=== PATIENT | female | born 1995 | race Caucasian/White ===

== ENCOUNTER 2025-02-18 18:08 | Emergency (ER) | payer SELFPAY ==
[2025-02-18 18:16] VITALS: BP 111/77; PULSE 75; RESP 18; TEMP 36.6; O2SAT 97; BMI 27.8
[2025-02-18] MEDS: lidocaine 1% INJ 20 mL SUBCUT (19:31)
--- NOTE | 2025-02-18 19:42 | W.ED.SKABFB ---
HPI - Skin/Abscess/Foreign Bdy General: Chief complaint: Skin/Abscess/Foreign Body Stated complaint: catfish fin stuck in right hand Time Seen by Provider: 02/18/25 19:23 History of Present Illness: This is a healthy 29-year-old girl who presents to the emergency room with a catfish cuauhtemoc stuck in her right hand. This in the crease between her thumb and index finger. Bleeding is controlled. Tetanus was within the last year. Neurovascularly intact. Related Data Previous Rx's ?Medication ?Instructions ?Recorded cephalexin 500 mg tablet 500 mg PO TID 7 days #21 tabs 02/18/25 ciprofloxacin HCl 500 mg tablet 500 mg PO BID 7 days #14 tabs 02/18/25 Allergies Allergy/AdvReac Type Severity Reaction Status Date / Time Penicillins Allergy ALGY-Hives Verified 02/18/25 18:20 Review of Systems Narrative: Constitutional symptoms: Negative except as documented in HPI. Skin symptoms: Negative except as documented in HPI. Eye symptoms: Negative except as documented in HPI. ENMT symptoms: Negative except as documented in HPI. Respiratory symptoms: Negative except as documented in HPI. Cardiovascular symptoms: Negative except as documented in HPI. Gastrointestinal symptoms: Negative except as documented in HPI. Genitourinary symptoms: Negative except as documented in HPI. Musculoskeletal symptoms: Negative except as documented in HPI. Neurologic symptoms: Negative except as documented in HPI. Psychiatric symptoms: Negative except as documented in HPI. Endocrine symptoms: Negative except as documented in HPI. Physical Exam Narrative: EXAM NARRATIVE: General: Alert, no acute distress. Skin: warm and dry. Foreign body/catfish cuauhtemoc protruding from the dorsum of the hand in the crease between the thumb and the index finger. Neurovascularly intact. Head: Normocephalic Neck: Trachea midline Eye: Extraocular movements are intact. Ears, nose, mouth and throat: Oral mucosa moist Respiratory: Respirations are non-labored Musculoskeletal: Normal ROM Gastrointestinal: Abdomen does not appear distended Neurological: Alert and oriented, No focal neurological deficit observed. Psychiatric: Cooperative, appropriate mood & affect. Course Vital Signs: Vital signs: Vital Signs Temperature 98 F 02/18/25 18:16 Pulse Rate 75 02/18/25 18:16 Respiratory Rate 18 02/18/25 18:16 Blood Pressure 111/77 02/18/25 18:16 Pulse Oximetry 97 02/18/25 18:16 Oxygen Delivery Me thod Room Air 02/18/25 18:16 MDM - Skin/Abscess/Foreign Bdy Medicial Decision Making Foreign body removal Time: 1939. Confirmed correct: Patient, procedure, sight. Consent: Patient Indication: foreign body/catfish cuauhtemoc Location: Right hand Pre procedure exam: Sensory intact, Procedural sedation: (repeat): Lidocaine without epinephrine locally Monitoring: none Technique: Pliers used to remove foreign body. Post-procedure exam: _ foreign body removed. Patient tolerated: Well Complications: None Performed by (rpt): Self Assessment and plan: Catfish cuauhtemoc in hand. ?First dose Cipro and Keflex in the emergency room. Cipro to cover water pathogens. - Discharged home - Discussed findings and plan with patient. Answered any questions. - Evaluation and treatment of this problem were appropriate in the emergency setting No radiology studies performed this visit Discharge Plan Discharge Patient Disposition: Home Clinical Impression: Foreign body hand Condition: Stable Prescriptions: New ciprofloxacin HCl 500 mg tablet 500 mg PO BID 7 Days Qty: 14 0RF cephalexin 500 mg tablet 500 mg PO TID 7 Days Qty: 21 0RF Discharge Orders: Discharge ED (Routine); Ordered 02/18/25 Ordered By: Mirta Kimball Discharge Diet: Usual diet Discharge Activity: Increase activity as tolerated Patient Instructions: Soft Tissue Foreign Body (ED), Puncture Wound (ED), Opioid Safety, Pain Management Activity Restrictions/Additional Instructions: Thank you for choosing [facility] for your healthcare needs today. You have been screened and evaluated and felt safe for discharge. Health conditions do change or evolve sometimes and as such it is important that you follow up with your Primary Doctor to be re checked, 3-5 days is a general good time frame for follow up. You are always welcome to return to the ED for re assessment if your symptoms are worsening or you have new concerns Print Language: Mozambican Coding Level of Care Code ED Real Estate Broker for Zhen Gan
[2025-02-18 20:21] VITALS: BP 117/76; PULSE 68; O2SAT 100
[2025-02-18] MEDS: ciprofloxacin 500 mg Tablet PO (20:47)
[2025-02-18] MEDS: cephALEXin 500 mg Capsule PO (20:47)
[2025-02-18] MEDS: HYDROcodone-acetaminophen 5-325 mg Tablet 2 TAB PO (20:48)
[2025-02-18 20:50] VITALS: BP 117/76; PULSE 73; O2SAT 100
== END 2025-02-18 20:52 | disposition home or self-care (01) ==
PROVIDERS: Emergency Provider Emergency Medicine
DX: S61.441A Puncture wound with foreign body of right hand, initial encounter (principal); W45.8XXA Other foreign body or object entering through skin, initial encounter
CPT/HCPCS: 99283; J9999

== ENCOUNTER 2025-02-24 13:32 | Emergency (ER) | payer SELFPAY ==
--- OUTSIDE RECORDS SUMMARY | 2024-10-24 04:00 | XMS_ITS ---
Author Organization [facility] Address [address] [facility] [address] [facility] [address] [place] [address] Care Team Providers Care Community Youth Secretary Name Role Phone Luz Lynn Primary Care Provider REASON FOR VISIT Palpitations Social History Sex Assigned At : Social History Observation Description Sex Assigned At Female Encounters Encounter Location Date Provider Diagnosis [facility] [address] [facility] [address] [place] [address] 10/24/2024 Luz Lynn Plan Of Treatment No Information Progress Notes * Jessica SCHUMACHERRachelleB: 6 (29 yo F)Acc No.[id number]:10/24/2024 Progress Notes Patient: Amina MALHOTRA Provider: YOSSI Kingston, DK, JONATHON-C :1995 A ge:28 Y S ex:Female Date:10/24/2024 Address:[address] [place], [place] [id number] Subjective: * Chief Complaints: * 1 . Palpitations. * Medical History: Objective: * Vitals: Assessment: Plan: * Treatment: * Billing Information: * Visit Code: * Procedure Codes: * Electronic signature of JONATHON Lanier on 02/24/2025 at 02:02 PM CDT Sign off status: Pending * Provider: YOSSI Kingston, DK, RN IV THERAPY-C Date: 10/24/2024 Generated for Printi ng/Faxing/eTransmitting on: 02/24/2025 02:02 PM CDT
--- OUTSIDE RECORDS SUMMARY | 2024-11-10 10:00 | XMS_ITS ---
[facility] Address [address] [address] Care Team Providers Care Inside Wirer Name Role Phone Luz Lynn Primary Care Provider REASON FOR VISIT Sick Medications Medication SIG (Take, Route, Fr equency, Duration) Notes Start Date End Date Status Fluconazole 150 MG 1 tablet Orally 1 no w may repeat in 3 days for 7 day(s) 03/10/2024 11/17/2024 Ac tive Azithromycin 250 MG 2 tablet on the s t day, then 1 tablet daily for 4 days Orally Once a day for 5 days 11/10/2024 11/15/2024 Act monica Social History Sex Assigned At : Social History Observation Description Sex Assigned At Female Encounters Encounter Location Date Provider Diagnosis [facility] [address] [address] 11/10/2024 Luz Lynn Fever, unspecifie d fever cause R50.9 ; Strep pharyngitis J02.0 ; Acute bilateral otitis media H66.93 ; Influenza-like illness J11.1 ; Acute cough R05.1 ; Wheezing R06.2 ; Exposure to COVID-19 virus Z20.822 ; Body aches R52 and Acute vaginitis N76.0 Assessments Encounter Date Diagnosis (ICD Code) Assessment Notes Treatment Notes Treatment Clinical Notes Section Notes 11/10/2024 Fever, unspecified fever cause (ICD-10 - R50.9) 11/10/2024 Strep pharyngitis (ICD-10 - J02.0) 11/10/2024 Acute bilateral otitis media (ICD-10 - H66.93) 11/10/2024 Influenza-like illness (ICD-10 - J11.1) 11/10/2024 Acute cough (ICD-10 - R05.1) 11/10/2024 Wheezing (ICD-10 - R06.2) 11/10/2024 Exposure to COVID-19 virus (ICD-10 - Z20.822) 11/10/2024 Body aches (ICD-10 - R52) 11/10/2024 Acute vaginitis (ICD-10 - N76.0) Plan Of Treatment Medication Medication Name Sig Start Date Stop Date Notes Fluconazole 150 MG 1 tablet Orally 1 no w may repeat in 3 days for 7 day(s) 03/10/2024 11/17/2024 Azithromycin 250 MG 2 tablet on the s t day, then 1 tablet daily for 4 days Orally Once a day for 5 days 11/10/2024 11/15/2024 Pending Test Test Name Order Date Rapid Flu 11/10/2024 Rapid Strep 11/10/2024 Covid Rapid Test 11/10/2024 Rapid RSV 11/10/2024 Next Appt Details Follow Up: 1 Week, Reason: f /u illness Progress Notes * Jessica SCHUMACHERRachelleB: 6 (29 yo F)Acc No.[id number]:11/10/2024 Progress Notes Patient: Amina MALHOTRA Provider: Jose Lynn, MSN, FUSE COILER, SMALL BUSINESS BANKING OFFICER-C :1995 A ge:28 Y S ex:Female Date:11/10/2024 Address:[address] [place], [place] [id number] Subjective: * Chief Complaints: * 1 . Sick. * Medical History: Objective: * Vitals: Assessment: * Assessment: 1. F ever, unspecified fever cause - R50.9 (Primary) 2 . S trep pharyngitis - J02.0 3 . A cute bilateral otitis media - H66.93 4 . I nfluenza-like illness - J11.1 5 . A cute cough - R05.1 6 . W heezing - R06.2 7 . E xposure to COVID-19 virus - Z20.822 8 .?Body aches - R52 9 . A cute vaginitis - N76.0 Plan: * Treatment: 2. S trep pharyngitis Start Azithromycin Tablet, 250 MG, 2 tablet on the first day, then 1 tablet daily for 4 days, Orally, Once a day, 5 days, 6 Tablet, Refills 0. L AB: Rapid Strep 3. I nfluenza-like illness L AB: Rapid Flu 4. A cute cough L AB: Rapid Flu L AB: Covid Rapid Test L AB: Rapid RSV 5. W heezing L AB: Rapid RSV 6. E xposure to COVID-19 virus L AB: Covid Rapid Test 7. B nathen aches L AB: Rapid Flu L AB: Covid Rapid Test 8. A cute vaginitis Refill Fluconazole Tablet, 150 MG, 1 tablet, Orally, 1 now may repeat in 3 days, 7 day(s), 2 Each, Refills 0. * Procedure Codes: 8 7880 Strep Immunoassa, Modifiers: QW , 98701 Flu A & B, Modifiers: QW , 56402 RAPID RSV, Modifiers: QW , 20592 Covid Rapid Test, Modifiers: QW * Follow Up: 1 Week (Reason: f/u illness) * Billing Information: * Visit Code: 69978 Office Visit, Est Patient Level 4. Modifiers: 25 * Procedure Codes: 40765 Strep Immunoassa. Modifiers: QW 80090 Flu A & B. Modifiers: QW 35495 RAPID RSV. Modifiers: QW 77142 Covid Rapid Test. Modifiers: QW * Electronic signature of JONATHON Lanier on 02/24/2025 at 02:02 PM CDT Sign off status: Pending * Provider: Jose Lynn, MSN, FUSE COILER, SMALL BUSINESS BANKING OFFICER-C Date: 0 11/10/2024 Generated for Anthony sheikh/Bobby/Marcysmitting on: 0 02/24/2025 02:02 PM CDT
--- OUTSIDE RECORDS SUMMARY | 2024-11-17 06:30 | XMS_ITS ---
Author Organization [facility] Address [address] [facility] [address] [facility] [address] [place] [address] Care Team Providers Care Laser Engineer Name Role Phone Luz Lynn Primary Care Provider [phone] REASON FOR VISIT f;u illness Medications Medication SIG (Take, Route, Fr equency, Duration) Notes Start Date End Date Status Fluconazole 150 MG 1 tablet Orally 1 no w may repeat in 3 days for 7 day(s) 03/10/2024 11/17/2024 Ac tive Social History Sex Assigned At : Social History Observation Description Sex Assigned At Female Encounters Encounter Location Date Provider Diagnosis [facility] [address] [facility] [address] [facility] [address] [place] [address] 11/17/2024 Luz Lynn Fever, unspecifie d fever cause R50.9 ; Strep pharyngitis J02.0 ; Acute bilateral otitis media H66.93 ; Influenza-like illness J11.1 ; Acute cough R05.1 ; Wheezing R06.2 ; Exposure to COVID-19 virus Z20.822 ; Body aches R52 and Acute vaginitis N76.0 Assessments Encounter Date Diagnosis (ICD Code) Assessment Notes Treatment Notes Treatment Clinical Notes Section Notes 11/17/2024 Fever, unspecified fever cause (ICD-10 - R50.9) 11/17/2024 Strep pharyngitis (ICD-10 - J02.0) 11/17/2024 Acute bilateral otitis media (ICD-10 - H66.93) 11/17/2024 Influenza-like illness (ICD-10 - J11.1) 11/17/2024 Acute cough (ICD-10 - R05.1) 11/17/2024 Wheezing (ICD-10 - R06.2) 11/17/2024 Exposure to COVID-19 virus (ICD-10 - Z20.822) 11/17/2024 Body aches (ICD-10 - R52) 11/17/2024 Acute vaginitis (ICD-10 - N76.0) Plan Of Treatment No Information Progress Notes * Michelle SCHUMACHERB: 6 (29 yo F)Acc No.[id number]:11/17/2024 Progress Notes Patient: Amina MALHOTRA Provider: Jose Lynn, MSN, ELECTROPLATER APPRENTICE, LABEL REWINDER-C :1995 A ge:28 Y S ex:Female Date:11/17/2024 Address:[address] [place], [place] [id number] Subjective: * Chief Complaints: * 1 . F;u illness. * Medical History: * Medications: T aking Fluconazole 150 MG Tablet 1 tablet Orally 1 now january repeat in 3 days , stop date 11/17/2024 Objective: * Vitals: Assessment: * Assessment: 1. [...] cute vaginitis - N76.0 Plan: * Treatment: * Billing Information: * Visit Code: 05467 Office Visit, Est Patient Level 4. * Procedure Codes: * Electronic signature of JONATHON Lanier on 02/24/2025 at 02:02 PM CDT Sign off status: Pending * Provider: Jose Lynn MSN, ELECTROPLATER APPRENTICE, LABEL REWINDER-C Date: 0 11/17/2024 Generated for Anthony ng/Ranulfog/eTransmitting on: 0 02/24/2025 02:02 PM CDT
--- NOTE | 2025-02-24 13:38 | XR_ITS ---
WS: [id number] Exam: XR hand RT min 3V* 17504 Date/Time of Exam: 02/24/2025 1:40 PM Reason For Exam: hand injury No acute fracture. The joints are preserved. Tiny linear opaque soft tissue density between the first and second metacarpals most likely a foreign body. This could be a glass fragment. XR/XR hand RT min 3V* [id number] IMPRESSION: 1. No fracture. 2. 1 mm x 3 mm opaque soft tissue density between the first and second metacarp als most likely a soft tissue foreign body. Possible glass fragment.
[2025-02-24 13:48] VITALS: BP 103/63; PULSE 71; RESP 18; TEMP 36.7; O2SAT 99
--- OUTSIDE RECORDS SUMMARY | 2025-02-24 14:02 | XMS_ITS | Patient Health Record ---
Author Organization [facility] Address [address] [place] [address] Care Team Providers Care Marble Carver Name Role Phone Luz Lynn Primary Care Provider Allergies Allergen (clinical drug ingredient) Drug/Non Drug Allergy documented on EMR Reaction Allergy Type Onset Date Status Penicillin rash Drug Allergy Active Results Component Value Reference Range Notes Covid Rapid Test Reviewed date:05/19/2024 10:34:31 AM Interpretation:Negative Performing Lab: Notes/Report: Negative Rapid Flu Reviewed date:05/12/2024 10:53:10 AM Interpretation:Negative Performing Lab: Notes/Report: Negative Rapid Strep Reviewed date:05/12/2024 10:53:20 AM Interpretation:Positive Performing Lab: Notes/Report: Positive Covid Rapid Test Reviewed date:05/12/2024 10:53:31 AM Interpretation:Negative Performing Lab: Notes/Report: Negative Rapid RSV Reviewed date:05/12/2024 10:53:40 AM Interpretation:Negative Performing Lab: Notes/Report: Negative Reason For Referral Reason EKG Holter Monitor S tudy Diagnosis 1 Palpitations (R00.2) Diagnosis 2 Tachycardia, unspeci fied (R00.0) Diagnosis 3 Near syncope (R55) Diagnosis 4 Chest pain at rest ( R07.9) Referral Organization [facility] Referring Provider First Name Luz Referring Provider Last Name January Referring Provider Speciality Family Med icine Referred Provider Specialty Sleep Medici ne Referral Priority Routine Social History Tobacco Use: Social History Observation Description Date Details (start date - stop date) Never Smoker NA - NA Sex Assigned At : Social History Observation Description Sex Assigned At Female Tobacco Use/Smoking Question Answer Notes Tobacco use: nonsmoker Additional Findings: Tobacco Non-User Aggressive non-smoker Section Notes: Patient is currently working a job that is very stressful. She repeatedly deals with confrontation and rudeness when she has to leave work for medical appointments for her daughter or herself. Patient with young at home, and she is working full-time Patient with young at home, and she is working full-time Patient with young at home, and she is working full-time Patient with young at home, and she is working full-time Patient with young at home, and she is working full-time Patient with young at home, and she is working full-time Patient with young infant at home, and she is working full-time Patient with young at home, and she is working full-time Problems Problem Type SNOMED Code ICD Code Onset Dates Problem Status W/U Status Risk Notes Problem Panic attack (784403951) Panic attack (F41.0) Active confirmed Problem Grief (672459810) Grief (F43.21) Active confirm ed Problem Mixed hyperlipidemia (378506959) Mixed hyperlipidemia (E78.2) Active confirmed Problem 20354303 Iron deficiency anemia, unspecified iron deficiency anemia type (D50.9) Active confirmed Problem 885747938 Dysmenorrhea (N94.6) Active confirmed Problem 67071161 Vitamin D deficiency (E55.9) Active confirmed Problem 043697478 Insomnia, unspecified type (G47.00) Active confirmed Problem 968459721 Mild intermitten t asthma with acute exacerbation (J45.21) Active confirmed Problem Adenomyosis of the uterus (N80.03) Active confirmed Problem Irritability and anger (949065008) Irritability and anger (R45.4) Active confirmed Problem Snoring (99661169) Snoring (R06.83) Active confirmed Problem 210452472 Allergic conjunctivitis of both eyes (H10.13) Active confirmed Problem 36429084 Allergic rhinitis, unspecified seasonality, unspecified trigger (J30.9) Active confirmed Problem 658365020 Chronic serous otitis media, bilateral (H65.23) Active confirmed Problem 74549695 Hypertrophy of tonsils with hypertrophy of adenoids (J35.3) Active confirmed Problem 24455674 Polyuria (R35.89) Active confirmed Problem 038285646 Polyphagia (R63.2) Active confirmed Problem 255023263 Mixed anxiety an d depressive disorder (F41.8) Active confirmed Problem 20387487 Irritability (R45.4) Active confirmed Problem 657445465 Hair loss (L65.9) Active confirmed Problem 71675480 Fatigue, unspecified type (R53.83) Active confirmed Vital Signs Heart Rate 72 /min 10/21/2024 Temperature 98.2 degrees Fahrenheit 10/21/2024 Respiratory Rate 18 /min 10/21/2024 Oximetry 99 % 10/21/2024 Blood pressure diastolic 78 mm Hg 10/21/2024 Height-cm 162.56 cm 10/21/2024 Weight-kg 67.9 kg 10/21/2024 Height 64 in 10/21/2024 Blood pressure systolic 112 mm Hg 10/21/2024 Weight 149.7 lbs 10/21/2024 BMI 25.69 kg/m2 10/21/2024 Encounters Encounter Location Date Provider Diagnosis [facility] [address] [address] 03/10/2024 Mashanda May [facility] [address] [address] 10/21/2024 Mashanda May Palpitations R00.2 ; Tachycardia, unspecified R00.0 ; Chest pain at rest R07.9 ; Dizziness R42 and Near syncope R55 [facility] [address] [address] 03/10/2024 Mashanda May Acute vaginitis N76. 0 and Dysuria R30.0 [facility] [address] [address] 05/12/2024 Mashanda May Fever, unspecified f ever cause R50.9 ; Strep pharyngitis J02.0 ; Headache, unspecified R51.9 ; Acute bilateral otitis media H66.93 ; Influenza-like illness J11.1 ; Acute non-recurrent maxillary sinusitis J01.00 ; Exposure to COVID-19 virus Z20.822 ; Acute cough R05.1 ; Wheezing R06.2 and Mild intermittent asthma with acute exacerbation J45.21 [facility] [address] [address] 05/19/2024 Mashanda May Fever, unspecified f ever cause R50.9 ; Strep pharyngitis J02.0 ; Influenza-like illness J11.1 ; Wheezing R06.2 ; Acute cough R05.1 ; Mild intermittent asthma with acute exacerbation J45.21 ; Allergic rhinitis, unspecified seasonality, unspecified trigger J30.9 ; Acute nonintractable headache, unspecified headache type R51.9 and Exposure to COVID-19 virus Z20.822 [facility] [address] [address] 09/12/2024 Mashanda May Fever, unspecified f ever cause R50.9 ; Strep pharyngitis J02.0 ; Influenza-like illness J11.1 ; Acute cough R05.1 ; Wheezing R06.2 ; Mild intermittent asthma with acute exacerbation J45.21 ; Exposure to COVID-19 virus Z20.822 and Acute vaginitis N76.0 [facility] [address] [address] 10/08/2024 Mashanda May Fever, unspecified R 50.9 ; Acute left otitis media H66.92 ; Influenza A J10.1 ; Acute sinusitis, unspecified J01.90 ; Acute pharyngitis, unspecified J02.9 ; Acute cough R05.1 ; Wheezing R06.2 ; Body aches R52 and Exposure to COVID-19 virus Z20.822 [facility] [address] [address] 10/24/2024 Mashanda May [facility] [address] [address] 11/10/2024 Mashanda May Fever, unspecified f ever cause R50.9 ; Strep pharyngitis J02.0 ; Acute bilateral otitis media H66.93 ; Influenza-like illness J11.1 ; Acute cough R05.1 ; Wheezing R06.2 ; Exposure to COVID-19 virus Z20.822 ; Body aches R52 and Acute vaginitis N76.0 [facility] [address] [address] 11/17/2024 Mashanda May Fever, unspecified f ever cause R50.9 ; Strep pharyngitis J02.0 ; Acute bilateral otitis media H66.93 ; Influenza-like illness J11.1 ; Acute cough R05.1 ; Wheezing R06.2 ; Exposure to COVID-19 virus Z20.822 ; Body aches R52 and Acute vaginitis N76.0 [facility] [address] [address] 09/19/2024 Mashanda May Fever, unspecified f ever cause R50.9 ; Strep pharyngitis J02.0 ; Influenza-like illness J11.1 ; Acute cough R05.1 ; Wheezing R06.2 ; Mild intermittent asthma with acute exacerbation J45.21 ; Exposure to COVID-19 virus Z20.822 and Acute vaginitis N76.0 [facility] [address] [address] 10/01/2024 Mashanda May Panic attack F41.0 ; Fever, unspecified R50.9 ; Acute left otitis media H66.92 ; Influenza A J10.1 ; Acute sinusitis, unspecified J01.90 ; Acute pharyngitis, unspecified J02.9 ; Acute cough R05.1 ; Wheezing R06.2 ; Body aches R52 ; Exposure to COVID-19 virus Z20.822 ; Grief F43.21 and Insomnia, unspecified type G47.00 Assessments Encounter Date Diagnosis (ICD Code) Assessment Notes Treatment Notes Treatment Clinical Notes Section Notes 03/10/2024 Acute vaginitis (ICD-10 - N76.0) 03/10/2024 Dysuria (ICD-10 - R30.0) 05/12/2024 Fever, unspecified fever cause (ICD-10 - R50.9) 05/12/2024 Strep pharyngitis (ICD-10 - J02.0) 05/19/2024 Fever, unspecified fever cause (ICD-10 - R50.9) 05/19/2024 Strep pharyngitis (ICD-10 - J02.0) 09/12/2024 Fever, unspecified fever cause (ICD-10 - R50.9) 09/12/2024 Strep pharyngitis (ICD-10 - J02.0) 09/19/2024 Fever, unspecified fever cause (ICD-10 - R50.9) 09/19/2024 Strep pharyngitis (ICD-10 - J02.0) 10/01/2024 Panic attack (ICD-10 - F41.0) 10/01/2024 Fever, unspecified (ICD-10 - R50.9) 10/08/2024 Fever, unspecified (ICD-10 - R50.9) 10/08/2024 Acute left otitis media (ICD-10 - H66.92) 10/21/2024 Palpitations (ICD-10 - R00.2) 10/21/2024 Tachycardia, unspecified (ICD-10 - R00.0) 11/10/2024 Fever, unspecified fever cause (ICD-10 - R50.9) 11/10/2024 Strep pharyngitis (ICD-10 - J02.0) 11/17/2024 Fever, unspecified fever cause (ICD-10 - R50.9) 11/17/2024 Strep pharyngitis (ICD-10 - J02.0) 11/17/2024 Acute bilateral otitis media (ICD-10 - H66.93) 11/10/2024 Acute bilateral otitis media (ICD-10 - H66.93) 10/21/2024 Chest pain at rest (ICD-10 - R07.9) 10/08/2024 Influenza A (ICD-10 - J10.1) 10/01/2024 Acute left otitis media (ICD-10 - H66.92) 09/19/2024 Influenza-like illness (ICD-10 - J11.1) 09/12/2024 Influenza-like illness (ICD-10 - J11.1) 05/19/2024 Influenza-like illness (ICD-10 - J11.1) 05/12/2024 Headache, unspecified (ICD-10 - R51.9) 05/12/2024 Acute bilateral otitis media (ICD-10 - H66.93) 05/19/2024 Wheezing (ICD-10 - R06.2) 09/12/2024 Acute cough (ICD-10 - R05.1) 09/19/2024 Acute cough (ICD-10 - R05.1) 10/01/2024 Influenza A (ICD-10 - J10.1) 10/08/2024 Acute sinusitis, unspecified (ICD-10 - J01.90) 10/21/2024 Dizziness (ICD-10 - R42) 11/10/2024 Influenza-like illness (ICD-10 - J11.1) 11/17/2024 Influenza-like illness (ICD-10 - J11.1) 11/17/2024 Acute cough (ICD-10 - R05.1) 11/10/2024 Acute cough (ICD-10 - R05.1) 10/21/2024 Near syncope (ICD-10 - R55) 10/08/2024 Acute pharyngitis, unspecified (ICD-10 - J02.9) 10/01/2024 Acute sinusitis, unspecified (ICD-10 - J01.90) 09/19/2024 Wheezing (ICD-10 - R06.2) 09/12/2024 Wheezing (ICD-10 - R06.2) 05/19/2024 Acute cough (ICD-10 - R05.1) 05/12/2024 Influenza-like illness (ICD-10 - J11.1) 05/12/2024 Acute non-recurrent maxillary sinusitis (ICD-10 - J01.00) 05/19/2024 Mild intermittent asthma with acute exacerbation (ICD-10 - J45.21) 09/12/2024 Mild intermittent asthma with acute exacerbation (ICD-10 - J45.21) 09/19/2024 Mild intermittent asthma with acute exacerbation (ICD-10 - J45.21) 10/01/2024 Acute pharyngitis, unspecified (ICD-10 - J02.9) 10/08/2024 Acute cough (ICD-10 - R05.1) 11/10/2024 Wheezing (ICD-10 - R06.2) 11/17/2024 Wheezing (ICD-10 - R06.2) 11/17/2024 Exposure to COVID-19 virus (ICD-10 - Z20.822) 11/10/2024 Exposure to COVID-19 virus (ICD-10 - Z20.822) 10/08/2024 Wheezing (ICD-10 - R06.2) 10/01/2024 Acute cough (ICD-10 - R05.1) 09/19/2024 Exposure to COVID-19 virus (ICD-10 - Z20.822) 09/12/2024 Exposure to COVID-19 virus (ICD-10 - Z20.822) 05/19/2024 Allergic rhinitis, unspecified seasonality, unspecified trigger (ICD-10 - J30.9) 05/12/2024 Exposure to COVID-19 virus (ICD-10 - Z20.822) 05/12/2024 Acute cough (ICD-10 - R05.1) 05/19/2024 Acute nonintractable headache, unspecified headache type (ICD-10 - R51.9) 09/12/2024 Acute vaginitis (ICD-10 - N76.0) 09/19/2024 Acute vaginitis (ICD-10 - N76.0) 10/01/2024 Wheezing (ICD-10 - R06.2) 10/08/2024 Body aches (ICD-10 - R52) 11/10/2024 Body aches (ICD-10 - R52) 11/17/2024 Body aches (ICD-10 - R52) 11/17/2024 Acute vaginitis (ICD-10 - N76.0) 11/10/2024 Acute vaginitis (ICD-10 - N76.0) 10/08/2024 Exposure to COVID-19 virus (ICD-10 - Z20.822) 10/01/2024 Body aches (ICD-10 - R52) 05/19/2024 Exposure to COVID-19 virus (ICD-10 - Z20.822) 05/12/2024 Wheezing (ICD-10 - R06.2) 05/12/2024 Mild intermittent asthma with acute exacerbation (ICD-10 - J45.21) 10/01/2024 Exposure to COVID-19 virus (ICD-10 - Z20.822) 10/01/2024 Grief (ICD-10 - F43.21) 10/01/2024 Insomnia, unspecified type (ICD-10 - G47.00) Plan Of Treatment Pending Test Test Name Order Date Ultrasound : Abdomen and Pelvis 07/11/20 Thyroid Panel With TSH 02/21/2022 Vitamin B12 and Folate 02/21/2022 Hemoglobin A1c 02/21/2022 Urinalysis, Complete 02/21/2022 CBC With Differential/Platelet Vitamin D, 25-Hydroxy 02/21/2022 Comp. Metabolic Panel (14) 02/21/2022 Rapid Flu 11/10/2024 Rapid Flu 10/01/2024 Rapid Flu 09/12/2024 Rapid Flu 08/08/2022 Rapid Flu 03/07/2023 US ABDOMINAL 07/11/2022 Rapid Strep 08/08/2022 Rapid Strep 07/11/2022 Rapid Strep 03/07/2023 Rapid Strep 09/12/2024 Rapid Strep 10/01/2024 Rapid Strep 11/10/2024 Covid Rapid Test 11/10/2024 Covid Rapid Test 10/01/2024 Covid Rapid Test 09/12/2024 Rapid RSV 09/12/2024 Rapid RSV 10/01/2024 Rapid RSV 11/10/2024 Thyroid Panel With TSH-[id number] 02/08/2024 Vitamin B12 and Folate-081428 02/08/2024 Iron and TIBC-200491 02/08/2024 Hemoglobin Y7w-913960 02/08/2024 Zinc, Plasma or Serum-866100 02/08/2024 Urinalysis, Complete-[id number] 02/08/2024 Urinalysis, Complete-[id number] 07/11/2022 ACTH, Plasma-104858 02/08/2024 CBC With Differential/Platelet-761169 Antistreptolysin O Ab-099628 09/18/2022 Urine Culture,Comprehensive-005515 07/11 PTH, Intact-053312 02/08/2024 Vitamin D, 18-Fmuxuhp-493440 02/08/2024 Anti-DNase B Strep Antibodies-333797 Cortisol - AM-[id number] 02/08/2024 Comp. Metabolic Panel ([id number] 2023 DHEA-Sulfate, Serum-116068 02/08/2024 FSH+TestT+LH+Prog+Estrogen-093012 2023 Lipid Profile-750888 02/08/2024 Insurance Providers Payer Name Payer Address Payer Phone Subscriber Number Group Number Insured Name Patient Relationship to Insured Coverage Start Date Coverage End Date [place] pPO [address] [place] [address] [id number] Amina Schumacher Self - patient is the insured Medications Administered Medication Instructions Date of Administration Dosage Notes Cyanobalamin Vit B 03/01/2022 1 mL Cyanobalamin Vit B 03/10/2022 1 mL Cyanobalamin Vit B 03/31/2022 1 mL Medical (General) History Medical History History ICD Code Mixed anxiety and depressive disorder F4 1.8 Fatigue, unspecified type R53.83 Hair loss L65.9 Polyuria R35.89 Irritability and anger R45.4 Polyphagia R63.2 Adenomyosis of the uterus N80.03 Surgical History Surgery Date(Month/Year) Hospitalization History Reason Date(Month/Year)
--- OUTSIDE RECORDS SUMMARY | 2025-02-24 14:03 | XMS_ITS | Clinical Summary ---
Author Organization [facility] Address [address] [place] [address] Care Team Providers Care Last Scourer Name Role Phone Pito Keith MD Primary Care Provider + [phone] Rakesh Mooney MD Unavailable [phone] Medications No known medications Social History Tobacco Use Types Packs/Day Years Used Date Smoking Tobacco: Never Assessed Comments Unknown Sex and Gender Information Value Date Recorded Sex Assigned at Not on file Legal Sex Female 10:50 AM [employer] Gender Identity Not on file Sexual Orientation Not on file Plan of Treatment Health Maintenance Due Date Last Done Comments SARS-COV-2 (COVID) VACCINE ( season) 2023 Insurance BLUE CROSS/BLUE SHIELD Care Teams Last Scourer Relationship Specialty Start Date End Date Pito Keith MD [address] [place] [address] PCP - General Obstetrics & Gynecology 09/22/21 Rakesh Mooney MD [address] [place] [id number] PCP - OBGYN 09/22/21
--- OUTSIDE RECORDS SUMMARY | 2025-02-24 14:03 | XMS_ITS | Data Portability ---
Author Organization [place] - [facility], [facility] Address [address] [place] [address] Assessment Encounter Date Assessment Date Assessment LastModified by Organization Details LastModified Time 11/03/2013 11/03/2013 Patrica Coma Scale (GCS) Eye: spontaneous - 4 Verbal: oriented - 5 Motor: obeys commands - 6 Total Score: 15 [email or web address] Not available 11/03/2013 16:17:58 05/30/2022 05/30/2022 26-year-old female with recurrent upper respiratory tract infections involving the sinuses, ears, and throat. She does have a strong history of allergies though prior allergy testing was unremarkable. Not available 05/30/2022 16:29:26 Plan of Treatment Reminders Order Date Submit Date Provider Last Modified By Organization Details Last Modified Time Details Appointments None recorded. Lab None recorded. Referral None recorded. Procedures allergy testing, skin prick (PROC) 2021 022 [email or web address] In-Office Order, Internal Use Only DO Not Attach Compendium DO Not Attach Compendium, Do Not Delete/merge, [id number] 15:05:15 Surgeries None recorded. Imaging None recorded. Medication Orders Augmentin 500 mg-125 mg tablet 2013 014 INTERFACE Not available 4 16:13:04 Medrol (Varinder) 4 mg tablets in a dose pack 2013 014 [email or web address] Not available 11:24:26 Patient TargetsNo targets recorded. Patient Instructions Encounter Date Encounter Id Patient Instructions Last Modified By Organization Details Last Modified Time 11/03/2013 [id number] Differential: sinusitis, URI, nasopharyngitis. Take medication as directed. Manuel MILLER [email or web address] Not available 11/03/2013 16:17:58 05/30/2022 [id number] allergies: care instructions Not available 05/30/2022 16:31:11 managing your allergies: care instructions Not available 05/30/2022 16:31:11 06/26/2022 [id number] Informed consent obtained and percutanous skin testing performed. Patient tolerated well. Results reviewed with patient. Given immunotherapy options which include sublingual drops or subcutaneous injections. Explained that sublingual drops are not covered by any insurance and cost would be out of pocket and that the subcutaneous injection coverage depends on patient's insurance. After testing was completed, benadryl cream was applied to back. Patient instructed to no perform any strenuous activity or exercise for 2 hours following test. [email or web address] Not available 06/26/2022 15:05:50 Reason for Referral None Reported. Results Created Date Observation Date Name Description Value Unit Range Abnormal Flag Note LastModifiedBy Organization Detail LastModifiedTime 06/26/20 22 06/26/2022 aller gy testi ng, skin prick (PROC ) Histamine Control 5 mm Not Available In-Off ice Order Internal Use Only DO Not Attach Compendium DO Not Attach Compendium, Do Not Delete/merge, [id number] 06/26/2022 15:04:18 06/26/20 22 06/26/2022 aller gy testi ng, skin prick (PROC ) Epiccocum Nigrum 7 mm Not Available In-Off ice Order Internal Use Only DO Not Attach Compendium DO Not Attach Compendium, Do Not Delete/merge, [id number] 06/26/2022 15:04:18 06/26/20 22 06/26/2022 aller gy testi ng, skin prick (PROC ) Cat Hair 0 mm Not Available In-Office Order Internal Use Only DO Not Attach Compendium DO Not Attach Compendium, Do Not Delete/merge, [id number] 06/26/2022 15:04:18 06/26/20 22 06/26/2022 aller gy testi ng, skin prick (PROC ) Dog Epithelium 0 mm Not Available In-Of fice Order Internal Use Only DO Not Attach Compendium DO Not Attach Compendium, Do Not Delete/merge, 06/26/2022 15:04:18 06/26/20 22 06/26/2022 aller gy testi ng, skin prick (PROC ) Mold Mix A 0 mm Not Available In-Offi ce Order Internal Use Only DO Not Attach Compendium DO Not Attach Compendium, Do Not Delete/merge, 06/26/2022 15:04:18 06/26/20 22 06/26/2022 aller gy testi ng, skin prick (PROC ) Mite Mix 0 mm Not Available In-Office Order Internal Use Only DO Not Attach Compendium DO Not Attach Compendium, Do Not Delete/merge, 06/26/2022 15:04:18 06/26/20 22 06/26/2022 aller gy testi ng, skin prick (PROC ) Bipolaris Sorokiniana 0 mm Not Available In-O ffice Order Internal Use Only DO Not Attach Compendium DO Not Attach Compendium, Do Not Delete/merge, 06/26/2022 15:04:18 06/26/20 22 06/26/2022 aller gy testi ng, skin prick (PROC ) Glycerin Control 0 mm Not Available In-Off ice Order Internal Use Only DO Not Attach Compendium DO Not Attach Compendium, Do Not Delete/merge, 06/26/2022 15:04:18 06/26/20 22 06/26/2022 aller gy testi ng, skin prick (PROC ) Roe Grass 7 mm Not Available In-Off ice Order Internal Use Only DO Not Attach Compendium DO Not Attach Compendium, Do Not Delete/merge, 06/26/2022 15:04:18 06/26/20 22 06/26/2022 aller gy testi ng, skin prick (PROC ) Bermuda Grass 0 mm Not Available In-Off ice Order Internal Use Only DO Not Attach Compendium DO Not Attach Compendium, Do Not Delete/merge, 06/26/2022 15:04:18 06/26/20 22 06/26/2022 aller gy testi ng, skin prick (PROC ) Bahia 0 mm Not Available In-Office Order Internal Use Only DO Not Attach Compendium DO Not Attach Compendium, Do Not Delete/merge, 06/26/2022 15:04:18 06/26/20 22 06/26/2022 aller gy testi ng, skin prick (PROC ) Mixed Cockroach 0 mm Not Available In-Off ice Order Internal Use Only DO Not Attach Compendium DO Not Attach Compendium, Do Not Delete/merge, 06/26/2022 15:04:18 06/26/20 22 06/26/2022 aller gy testi ng, skin prick (PROC ) Asha [place] 0 mm Not Available In-Off ice Order Internal Use Only DO Not Attach Compendium DO Not Attach Compendium, Do Not Delete/merge, 06/26/2022 15:04:18 06/26/20 22 06/26/2022 aller gy testi ng, skin prick (PROC ) Western Juniper 0 mm Not Available In-Off ice Order Internal Use Only DO Not Attach Compendium DO Not Attach Compendium, Do Not Delete/merge, 06/26/2022 15:04:18 06/26/20 22 06/26/2022 aller gy testi ng, skin prick (PROC ) [place] Grass 0 mm Not Available In-Offic e Order Internal Use Only DO Not Attach Compendium DO Not Attach Compendium, Do Not Delete/merge, 06/26/2022 15:04:18 06/26/20 22 06/26/2022 aller gy testi ng, skin prick (PROC ) Yoandy Grass 7 mm Not Available In-Off ice Order Internal Use Only DO Not Attach Compendium DO Not Attach Compendium, Do Not Delete/merge, 06/26/2022 15:04:18 06/26/20 22 06/26/2022 aller gy testi ng, skin prick (PROC ) Pecan Pollen 7 mm Not Available In-Of fice Order Internal Use Only DO Not Attach Compendium DO Not Attach Compendium, Do Not Delete/merge, 06/26/2022 15:04:18 06/26/20 22 06/26/2022 aller gy testi ng, skin prick (PROC ) Mountain Candler 0 mm Not Available In-Off ice Order Internal Use Only DO Not Attach Compendium DO Not Attach Compendium, Do Not Delete/merge, 06/26/2022 15:04:18 06/26/20 22 06/26/2022 aller gy testi ng, skin prick (PROC ) [place] 0 mm Not Available In-Office Order Internal Use Only DO Not Attach Compendium DO Not Attach Compendium, Do Not Delete/merge, [id number] 06/26/2022 15:04:18 06/26/20 22 06/26/2022 aller gy testi ng, skin prick (PROC ) 10 Tree Mix 0 mm Not Available In-Off ice Order Internal Use Only DO Not Attach Compendium DO Not Attach Compendium, Do Not Delete/merge, 06/26/2022 15:04:18 06/26/20 22 06/26/2022 aller gy testi ng, skin prick (PROC ) Rough Pigweed 0 mm Not Available In-Off ice Order Internal Use Only DO Not Attach Compendium DO Not Attach Compendium, Do Not Delete/merge, 06/26/2022 15:04:18 06/26/20 22 06/26/2022 aller gy testi ng, skin prick (PROC ) British Thistle 0 mm Not Available In-Off ice Order Internal Use Only DO Not Attach Compendium DO Not Attach Compendium, Do Not Delete/merge, 06/26/2022 15:04:18 06/26/20 22 06/26/2022 aller gy testi ng, skin prick (PROC ) Mosinee/Dock Mix 0 mm Not Available In-Off ice Order Internal Use Only DO Not Attach Compendium DO Not Attach Compendium, Do Not Delete/merge, [id number] 06/26/2022 15:04:18 06/26/20 22 06/26/2022 aller gy testi ng, skin prick (PROC ) Ida Pollen 7 mm Not Available In-Off ice Order Internal Use Only DO Not Attach Compendium DO Not Attach Compendium, Do Not Delete/merge, 06/26/2022 15:04:18 06/26/20 22 06/26/2022 aller gy testi ng, skin prick (PROC ) Togolese Plantain 7 mm Not Available In-Off ice Order Internal Use Only DO Not Attach Compendium DO Not Attach Compendium, Do Not Delete/merge, 06/26/2022 15:04:18 06/26/20 22 06/26/2022 aller gy testi ng, skin prick (PROC ) Mixed Ragweed 0 mm Not Available In-Off ice Order Internal Use Only DO Not Attach Compendium DO Not Attach Compendium, Do Not Delete/merge, 06/26/2022 15:04:18 06/26/20 22 06/26/2022 aller gy testi ng, skin prick (PROC ) Mugwort 0 mm Not Available In-Office Order Internal Use Only DO Not Attach Compendium DO Not Attach Compendium, Do Not Delete/merge, 06/26/2022 15:04:18 06/26/20 22 06/26/2022 aller gy testi ng, skin prick (PROC ) Melgar's Quarters 0 mm Not Available In-Off ice Order Internal Use Only DO Not Attach Compendium DO Not Attach Compendium, Do Not Delete/merge, 06/26/2022 15:04:18 06/26/20 22 06/26/2022 aller gy testi ng, skin prick (PROC ) Carelessweed 0 mm Not Available In-Of fice Order Internal Use Only DO Not Attach Compendium DO Not Attach Compendium, Do Not Delete/merge, 06/26/2022 15:04:18 06/26/20 22 06/26/2022 aller gy testi ng, skin prick (PROC ) Dog Fennel 0 mm Not Available In-Offi ce Order Internal Use Only DO Not Attach Compendium DO Not Attach Compendium, Do Not Delete/merge, 06/26/2022 15:04:18 06/26/20 22 06/26/2022 aller gy testi ng, skin prick (PROC ) Rough Ortega Elder 0 mm Not Available In-Off ice Order Internal Use Only DO Not Attach Compendium DO Not Attach Compendium, Do Not Delete/merge, 06/26/2022 15:04:18 06/26/20 22 06/26/2022 aller gy testi ng, skin prick (PROC ) [place] 0 mm Not Available In-Offic e Order Internal Use Only DO Not Attach Compendium DO Not Attach Compendium, Do Not Delete/merge, 06/26/2022 15:04:18 06/26/20 22 06/26/2022 aller gy testi ng, skin prick (PROC ) Horse 7 mm Not Available In-Office Order Internal Use Only DO Not Attach Compendium DO Not Attach Compendium, Do Not Delete/merge, 06/26/2022 15:04:18 06/26/20 22 06/26/2022 aller gy testi ng, skin prick (PROC ) Mice 0 mm Not Available In-Office Order Internal Use Only DO Not Attach Compendium DO Not Attach Compendium, Do Not Delete/merge, 06/26/2022 15:04:18 06/26/20 22 06/26/2022 aller gy testi ng, skin prick (PROC ) [place] 0 mm Not Available In-Off ice Order Internal Use Only DO Not Attach Compendium DO Not Attach Compendium, Do Not Delete/merge, 06/26/2022 15:04:18 06/26/20 22 06/26/2022 aller gy testi ng, skin prick (PROC ) [place] 0 mm Not Available In-Office Order Internal Use Only DO Not Attach Compendium DO Not Attach Compendium, Do Not Delete/merge, 06/26/2022 15:04:18 06/26/20 22 06/26/2022 aller gy testi ng, skin prick (PROC ) Gilliam 0 mm Not Available In-Office Order Internal Use Only DO Not Attach Compendium DO Not Attach Compendium, Do Not Delete/merge, 06/26/2022 15:04:18 06/26/20 22 06/26/2022 aller gy testi ng, skin prick (PROC ) Catlle 0 mm Not Available In-Office Order Internal Use Only DO Not Attach Compendium DO Not Attach Compendium, Do Not Delete/merge, 06/26/2022 15:04:18 06/26/20 22 06/26/2022 aller gy testi ng, skin prick (PROC ) Mixed Feathers 0 mm Not Available In-Off ice Order Internal Use Only DO Not Attach Compendium DO Not Attach Compendium, Do Not Delete/merge, 06/26/2022 15:04:18 06/26/20 22 06/26/2022 aller gy testi ng, skin prick (PROC ) Rabbit 0 mm Not Available In-Office Order Internal Use Only DO Not Attach Compendium DO Not Attach Compendium, Do Not Delete/merge, [id number] 06/26/2022 15:04:18 Result Notes None recorded. Problems Name Problem SNOMED Code Status Onset Date Resolution Date Notes Provider Name and Address Organization Details Recorded Time Acute sinusitis [id number] FARHAD Arguelles, [address], [place], [address], [facility] 4 16:17:58 Fever [id number] Radhames Goodwin PA-C [address], [address], [place], [address], [facility] 4 16:17:58 Cough [id number] FARHAD Arguelles [employer], [address], [place], [address], [facility] 4 16:17:58 Problem Notes None recorded. Procedures Surgical History Date Name Laterality Status Provider Name and Address Organization Details Recorded Time procedure on wrist completed [facility] 05/30/2022 11:25:18 Imaging Results None recorded. Procedure Notes None recorded. Medical Equipment None Reported. Allergies Allergen ID Allergen Name Allergen Category Reaction Reaction Severity Criticality Documentation Date Start Date Code Code System Note Provider Name and Address Organization Details Recorded Time 695525 Product containin g penicilli n (product) medicatio n Not available Not available Not available 05/30/2022 78903 8001 SNOMED [facility] 2 11:23:50 394151 amoxicill in medicatio n Not available Not available Not available 05/30/2022 723 RxNorm [facility] 2 11:23:55 Medications Name Sig Start Date Stop Date Status Note LastModified by Organization Details LastModified Time Immunothera py Vial #1 0.25cc of vial #2; glycerin 1.0cc 2021 active Not Available Not Available Not Avai lable Immunothera py Vial #2 Epiccocum nigrum, johsnon grass, yoandy grass, pecan pollen, corn pollen, gambian plantain, horse - all full concentra te, 1cc each; glycerin 3cc 2021 active Not Available Not Available Not Avai lable terconazole 0.4 % vaginal cream INSERT 1 APPLICATO RFUL VAGINALLY ONCE DAILY AT BEDTIME FOR 7 DAYS 05/30 completed Not Available Not Available Not Available venlafaxine ER 37.5 mg capsule,ext ended release 24 hr 05/30 completed Not Available Not Available Not Available venlafaxine ER 75 mg capsule,ext ended release 24 hr active Not Available Not Available Not Available clindamycin HCl 300 mg capsule TAKE 1 CAPSULE BY MOUTH THREE TIMES DAILY 05/30 completed Not Available Not Available Not Available azithromyci n 250 mg tablet active Not Available Not Available Not Available ibuprofen 800 mg tablet active Not Available Not Available Not Available tizanidine 4 mg tablet active Not Available Not Available Not Available fluconazole 150 mg tablet 05/30 completed Not Available Not Available Not Available venlafaxine 25 mg tablet 05/30 completed Not Available Not Available Not Available Medrol (Varinder) 4 mg tablets in a dose pack Use as directed 05/30 completed Not Available Not Available Not Available prednisone 20 mg tablet 05/30 completed Not Available Not Available Not Available cefdinir 300 mg capsule 05/30 completed Not Available Not Available Not Available doxycycline hyclate 100 mg tablet 05/30 completed Not Available Not Available Not Available Augmentin 500 mg-125 mg tablet Take 1 tablet every 12 hours by oral route for 10 days. 11/13 completed Not Available Not Available Not Available nitrofurant oin monohydrate /macrocryst als 100 mg capsule TAKE 1 CAPSULE BY MOUTH TWICE DAILY FOR 7 DAYS 05/30 completed Not Available Not Available Not Available levocetiriz ine 5 mg tablet active Not Available Not Available Not Available Auvi-Q 0.3 mg/0.3 mL injection, auto-inject or Take 1 auto by injection route as directed for 1 day. active Not Available Not Available No t Available Zafemy 150 mcg-35 mcg/24 hr transdermal patch APPLY 1 PATCH TOPICALLY ONCE A WEEK GO PATCH FREE THE 4TH WEEK TO HAVE A PERIOD active Not Available Not Available No t Available Vitals Date Recorded Heart rate Respiratory rate Body temperature Body height Body weight Oxygen saturation Oxygen saturation in Arterial blood by Pulse oximetry Body mass index (BMI) Systolic blood pressure Diastolic blood pressure Provider Name and Address Organization Details Last Updated DateTime 4 66 /min 18 /min 100 [degF] 160.02 cm 12929.6 0648 g 99 % 99 % 18.4 kg/m2 114 mm[Hg] 75 mm[Hg] Urban Solomon [facility] 4 14:31:19 Date Recorded Body height Body weight Body mass index (BMI) Heart rate Oxygen saturation Oxygen saturation in Arterial blood by Pulse oximetry Body temperature Systolic blood pressure Diastolic blood pressure Provider Name and Address Organization Details Last Updated DateTime 2 162.56 cm 10624.2 6 g 25.6 kg/m2 90 /min 98 % 98 % 98 [degF] 115 mm[Hg] 76 mm[Hg] Sun Antoinena [facility] 2 11:23:32 Date Recorded Body height Heart rate Oxygen saturation Oxygen saturation in Arterial blood by Pulse oximetry Body temperature Systolic blood pressure Diastolic blood pressure Provider Name and Address Organization Details Last Updated DateTime 2 162.56 cm 76 /min 98 % 98 % 97.7 [degF] 109 mm[Hg] 71 mm[Hg] Lupe French , RN [address], [facility] [address], [place], [address], [facility] 2 14:28:57 Social History Question Answer Notes LastModified by Organizat ion Details LastModified Time Tobacco Smoking Status Never Smoker Urban Solomon [facility] 11/03/2013 14:31:18 What Type Of Diet Are You Following? REGULAR Information not available 11/03/2013 Education 12 Information no t available 11/03/2013 Live Alone Or With Others? With Others Information not available 11/03/2013 Marital Status Single Informatio n not available 11/03/2013 Sex: Unknown Functional Status Question Answer Note LastModified by Organizat ion Details LastModified Time What is your exercise level? Occasional Information not available 11/03/2013 Mental Status None recorded. Family History Nothing Reported. Medical History Condition Response Emphysema N *Chronic Kidney Disease N Glaucoma N Depression Y * N Anxiety Disorder N Arthritis N Hearing Loss N *Healthcare worker N Cancer N Stroke N *Type 2 Diabetes N Fibromyalgia N Speech Delay N Kidney Disease N Allergies/Hayfever Y Heart Problems N Heart Conditions N *COPD (Chronic Obstructive Pulmonary Dis ease) N Migraines N Thyroid Problems N Developmental Delay N *Age is 65 years and above N Anemia N Immune System Disorder N Heart Attack (VT) N *Cancer N Diabetes N Bleeding Disorder N Acid reflux N Asthma N *Obesity and Severe Obesity N Sleep Disorder N *Sickle Cell Disease N *Heart conditions, such as h eart failure, coronary artery disease or cardiomyopathies, solid organ transplantation N Hypertension N Gynecological HistoryNo gynecological history recorded. Obstetrics History GPAL:G 0 P 0 0 0 0 Past Encounters Encounter ID Performer Location Encounter Start Date Encounter Closed Date Diagnosis/Indication Diagnosis SNOMED-CT Code Diagnosis ICD10 Code Diagnosis Note [id number] Zheng Goodwin PA-C [facility] [address] [facility] [address] [place] [address] 11/03/2013 14:08:25 11/03/2013 17:32:00 Acute sinusitis 54030711 Fever [id number] Cough [id number] Miguel Angel Agee MD ENT [address],[facility] [address] [place] [address] 05/30/2022 10:49:16 05/30/2022 11:50:07 Chronic tonsillitis 08464909 J35.01 Tonsils are small and I do not have a strong history or at least a strong record of recurrent strep infections . If we were ever to consider surgery of her tonsils I would need to have documented strep infections because she certainly has no evidence of hypertroph y. Bilateral recurrent acute serous otitis media of middle ears 2980964847 154261 H65.06 Ears look normal today. Allergies may very well be contributi ng to her recurrent ear issues. See below. Recurrent acute sinusitis 861363194 J01.91 She may need a CAT scan of her sinuses but I like to start with allergy testing first. Symptoms seem to be less concretely sinusitis in origin. However, if the allergy testing is unremarkab le a CAT scan will be necessary. Allergic rhinitis 498139 04 J30.9 History does seem most consistent with allergies. Although prior allergy testing was negative, I would like to repeat her allergy testing with multi prick testing as well as intraderma l delusional testing if needed. She is very interested in taking that route. I think this may be an underlying issue to address a lot of the above problems rather than getting super aggressive with surgery or other imaging studies. We will proceed with allergy skin testing and I will see her subsequent ly. [id number] Davina Tanner, KATIANA-C ENT [address] [place] [address] 06/26/2022 14:14:25 06/26/2022 15:29:38 Allergic rhinitis caused by pollen 16097787 J30.1 Health Concerns Section Related Observation LastModified by Organization Detai ls LastModified Time None Recorded Concern Status LastModified by Organization Details LastModified Time None Recorded Advance Directives Directive None Recorded Payers Insurance Date Sequence Insurance Name Policy Number Policy Hilario Covered Member ID Hilario Member ID Guarantor Name 06/23/2022 1 [facility] [id number] Amina Nydia Schumacher [id number] Dimitri Schumacher 04/24/2022 1 *SELF PAY* Jaime Schumacher Notes Date Note Type Note Provider Name and Address Organization Details Recorded Time 11/03/2013 text/html HPI New pt comes in with sinus pressure, fever, cough and congestion x 2 days Zheng Goodwin PA-C [address], [address], [place], [address], [place] [facility] 11/03/2013 16:18:17 05/30/2022 text/html Sinusitis/Allerg yRep orted bypatient.Onset/David ng:recurring; Occurs During Particular Seasons Of The Year: Initially Started: Progressively Worse Over Last:6 Progressively Worse Over Last Duration:Years Location:sore throat;thick phlegm in throat;ear fullness; Headache:Forehead Facial Pain:Bilaterally Sinus Pain:Cheek Nasal Discharge From:Both Nasal Passage Blockage:Bilaterally Pain Behind The Eyes:Both Quality:Quality Of Pain:Pain, Itching, Throbbing, Burning Severity:current pain /10; variable; Symptoms Usually Last:3 Symptoms Duration:Weeks Occurs:Sporadically Context:worse with seasonal allergen exposure;worse around pollen;worse with environmental exposure;worse with odors Risk Factors:family history of allergies Alleviating factors:What Makes Your Symptoms Better:None Aggravating factors:worse when allergies are active; worse with damp weather; worse with cold weather; worse with dry air Associated Symptoms:no fever; no weight loss; no hemoptysis; no hematemesis; no difficulty breathing; no feeling of strangulation; no nausea or vomiting;nasal dischargeNotes:Refer ring Doctor:Luz lobo; Referral Source:Word of Mouth; Checkbox:Person agrees that this Agreement may be electronically signed via checkbox, and that any electronic signatures appearing on this Agreement or such other documents are the same as handwritten signatures for the purposes of validity, enforceability, and admissibility.; Mobileformsource:0 26 yof presents today for evaluation of ear and throat infections. She has bad allergies, frequent sinus infections, occ ear and strep infection. This has been a problem as a youth and as an adult. Her mom tried to get her tonsils out as a youth but apparently they didn't want to take them out at the time. Her last strep is unclear. She had allergy testing at [facility] but it was negative at the time but she is quite convinced that she has allergies. They ordered a CT scan but she was going to have to pay out of pocket a lot of money and she couldn't do it at the time. She isn't sure if she snores but her says that she does. Miguel Angel Agee MD [address], [facility] [address], [place], [address], [facility] 05/30/2022 16:31:23 OBGyn Episode No OBEpisode recorded.
--- NOTE | 2025-02-24 15:07 | W.ED.EXTPRO ---
HPI - Extremity Problem General: Chief complaint: Extremity Injury, Upper Stated complaint: right hand swelling Time Seen by Provider: 02/24/25 15:04 Source: patient Mode of arrival: ambulatory Limitations: no limitations History of Present Illness: Patient is a nice 29-year-old female presents to ED today along with family for evaluation of a potential right hand infection. Patient was seen here approximately 6 days ago after she had the cuauhtemoc of a catfish penetrate into her right hand near the webbing of her 1st and 2nd digits. Patient was seen here in the emergency department and reportedly had the cuauhtemoc removed. Patient states she was put on cephalexin and ciprofloxacin. Patient states she was doing well until yesterday when she began developing worsening pain, swelling, redness. She feels like a portion of the catfish cuauhtemoc is retained in her hand. She has not been running fevers. No streaking up her forearm. MD Complaint: extremity pain and extremity swelling Onset (ago): day(s) Pain Consistency: constant Location: right and upper extremity (hand) Radiation: none Relieving factors: nothing Exacerbating factors: nothing Associated symptoms: Reports no associated symptoms; Deny fever(s) Related Data Previous Rx's ?Medication ?Instructions ?Recorded cephalexin 500 mg tablet 500 mg PO TID 7 days #21 tabs 02/24/25 ciprofloxacin HCl 500 mg tablet 500 mg PO BID 7 days #14 tabs 02/24/25 metronidazole 500 mg tablet 500 mg PO BID 7 days #14 tabs 02/24/25 Allergies Allergy/AdvReac Type Severity Reaction Status Date / Time adhesive Allergy Unknown Verified 02/24/25 13:54 Latex, Natural Rubber Allergy Unknown Verified 02/24/25 13:54 Penicillins Allergy ALGY-Hives Verified 02/18/25 18:20 Review of Systems Const: Denies: fever(s), chills, body aches, fatigue or malaise Musc: Reports: extremity pain and extremity swelling; Denies: joint pain or joint swelling Skin/Breast: Reports: erythema Neuro: Denies: numbness in extremities, weakness in extremities or sensory changes Physical Exam Const: COMMON NORMALS: no acute distress, average body habitus, patient oriented x3, no limitations, healthy appearing, alert and well nourished Resp: COMMON NORMALS: normal respiratory effort and clear to auscultation bilaterally AUSCULTATION: clear to auscultation bilaterally Cardio: COMMON NORMALS: regular rate and regular rhythm RATE: regular rate RHYTHM: regular rhythm Extremity: COMMON NORMALS: full ROM GENERAL: Yes normal exam except as noted RIGHT UPPER EXTREMITY: Yes hand & digits (mild edema, erythema, warmth web space 1-2 digits; small puncture wound) Right hand and digits: Yes palpation (no obvious clinical concern for abscess), Yes ROM exam (normal), Yes neurovascular exam (normal) and Yes tendon exam (normal) Neuro: COMMON NORMALS: patient oriented x3, moves all extremities, no focal motor deficits and no sensory deficits noted SENSORIUM/ORIENTATION: Yes alert Course Vital Signs: Vital signs: Vital Signs Temperature 98.1 F 02/24/25 13:48 Pulse Rate 71 02/24/25 13:48 Respiratory Rate 18 02/24/25 13:48 Blood Pressure 103/63 02/24/25 13:48 Pulse Oximetry 99 02/24/25 13:48 Oxygen Delivery Me thod Room Air 02/24/25 13:48 MDM - Extremity (Nontraumatic) Medical Decision Making Patient clinically appears in no acute distress. Patient was doing well on her antibiotics until yesterday when she began acutely worsening. She has mild erythema, edema, and tenderness to site of the puncture wound. At this time I do not suspect abscess. She has full range of motion. XR of her hand showing a retained 1 x 3 mm presumed catfish cuauhtemoc. I did spoke to infectious disease, Dr. Delacruz who stated that the cephalexin and ciprofloxacin are appropriate antibiotic selections given pond water exposure. Patient has an allergy to penicillins. Had recommended IV cefepime here. Stated we could add flagyl for additional anaerobic coverage. I spoke to Dr. Park and he will have Richard Park PA-C evaluate the patient tomorrow in clinic and he will plan for OR washout on Sunday. Medical Records I reviewed the patient's medical records. Lab Data I reviewed the patient's lab results. 02/24/25 15:58 02/24/25 15:58 Radiology Impressions Hand X-Ray 02/24/25 13:38 IMPRESSION: 1. No fracture. 2. 1 mm x 3 mm opaque soft tissue density between the first and second metacarpals most likely a soft tissue foreign body. Possible glass fragment. Laboratory Results WBC 6.69 10^3/uL (3.29-11.43) 02/24/25 15:58 RBC 4.56 10^6/uL (3.85-5.65) 02/24/25 15:58 Hgb 13.20 g/dL (11.27-16.99) 02/24/25 15:58 Hct 40.3 % (36-47) 02/24/25 15:58 MCV 88.4 fl (85-98) 02/24/25 15:58 MCH 28.9 pg (27-33) 02/24/25 15:58 MCHC 32.8 g/dL (30-55) 02/24/25 15:58 RDW 13.4 % (12.1-15.1) 02/24/25 15:58 Plt Count 243 10^3/cmm (157-399) 02/24/25 15:58 MPV 8.9 fL (7.4-10.4) 02/24/25 15:58 Neut % (Auto) 64.8 % 02/24/25 15:58 Lymph % (Auto) 25.4 % 02/24/25 15:58 Morris % (Auto) 8.1 % 02/24/25 15:58 Eos % (Auto) 1.2 % 02/24/25 15:58 Baso % (Auto) 0.4 % 02/24/25 15:58 Neut # (Auto) 4.33 10^3/uL (1.8-7.7) 02/24/25 15:58 Lymph # (Auto) 1.7 10^3/uL (0.8-4.8) 02/24/25 15:58 Morris # (Auto) 0.5 10^3/uL (0.2-0.9) 02/24/25 15:58 Eos # (Auto) 0.1 10^3/uL (0.0-0.8) 02/24/25 15:58 Baso # (Auto) 0.0 10^3/uL (0.0-0.1) 02/24/25 15:58 Nucleated RBC % (auto) 0 % 02/24/25 15:58 Nucleated RBCs # 0.0 /100WBC 02/24/25 15:58 All radiology interpretation(s) finalized by discharge Discharge Plan Discharge Patient Disposition: Home Clinical Impression: Puncture wound of right hand with infection Condition: Stable Prescriptions: New metronidazole 500 mg tablet 500 mg PO BID 7 Days Qty: 14 0RF Continued ciprofloxacin HCl 500 mg tablet 500 mg PO BID 7 Days Qty: 14 0RF cephalexin 500 mg tablet 500 mg PO TID 7 Days Qty: 21 0RF Discharge Orders: Discharge ED (Routine); Ordered 02/24/25 Ordered By: Cecilia Wellington Referrals: Richard Park PA [Physician Traffic And Transport Planner, Orthopedics] Patient Instructions: Patient Portal & Johnathan Instructions Activity Restrictions/Additional Instructions: You will see Richard Park PA-C at the [facility] orthopedic clinic at 8:45 in the morning. Please show up early to this appointment to fill out any necessary paperwork. Continue your antibiotics as prescribed. I am refilling both of your antibiotics for an additional week and adding metronidazole (flagyl) at the request of our infectious disease specialist. Plan on surgery for infection washout on Sunday by Dr. Park. You will be given additional information regarding this at your orthopedic visit tomorrow. Print Language: Kiswahili Coding Level of Care Code ED Food Services Manager for Zhen Gan
[2025-02-24 16:04] LABS: Basophils % 0.4 %; Eosinophils # 0.1 10^3/uL (0.0-0.8); Eosinophils % 1.2 %; Hematocrit 40.3 % (36-47); Lymphocytes # 1.7 10^3/uL (0.8-4.8); Lymphocytes % 25.4 %; Mean Corpuscular HGB Conc 32.8 g/dL (30-55); Mean Corpuscular Hemoglobin 28.9 pg (27-33); Mean Corpuscular Volume 88.4 fl (85-98); Mean Platelet Volume 8.9 fL (7.4-10.4); Monocytes # 0.5 10^3/uL (0.2-0.9); Monocytes % 8.1 %; Neutrophils # 4.33 10^3/uL (1.8-7.7); Neutrophils % 64.8 %; Nucleated Red Blood Cells % 0 %; Platelet Count 243 10^3/cmm (157-399); Red Blood Count 4.56 10^6/uL (3.85-5.65); Red Cell Distribution Width 13.4 % (12.1-15.1); White Blood Count 6.69 10^3/uL (3.29-11.43)
[2025-02-24] MEDS: metroNIDAZOLE 500 MG Tablet PO (16:12)
[2025-02-24] MEDS: cefepime 1,000 mg SDV 1000 MG IVP (16:12)
--- NOTE | 2025-02-24 16:12 | DCPLANNER ---
Scheduled appt with Richard Park for 0845 am 02/25/25
[2025-02-24 16:21] LABS: Alanine Aminotransferase 13 U/L (0-33); Albumin Level 4.5 g/dL (3.5-5.2); Alkaline Phosphatase 76 U/L (35-105); Anion Gap 15.9 (5-19); Aspartate Amino Transferase 13 U/L (0-32); Blood Urea Nitrogen 11 mg/dL (6-20); Calcium 9.6 mg/dL (8.5-10.5); Carbon Dioxide 24 mmol/L (22-29); Chloride 103 mmol/L (98-107); Creatinine Clr Calc Pharmacy 135.8745; Globulin 2.9 g/dL (1.3-4.6); Glomerular Filtration Rate 118.2 mL/min (90-130); Glucose 106 mg/dL (65-115); Osmolality Calculated 288 mOsm/kg (285-295); Potassium 3.9 mmol/L (3.5-5.1); Sodium 139 mmol/L (136-145); Total Bilirubin 0.5 mg/dL (0.15-1.2); Total Protein 7.4 g/dL (6.6-8.7)
== END 2025-02-24 16:35 | disposition home or self-care (01) ==
PROVIDERS: Emergency Provider Physician Assistant
DX: S61.431A Puncture wound without foreign body of right hand, initial encounter (principal); L03.113 Cellulitis of right upper limb; X58.XXXA Exposure to other specified factors, initial encounter
CPT/HCPCS: 36415; 73130; 80053; 85025; 96374; 99284; J0692; J9999

== ENCOUNTER 2025-02-27 08:14 | Day surgery (SDC) | payer SELFPAY ==
[2025-02-27] VITALS (7 sets, daily range): BP systolic 101–119; BP diastolic 56–65; PULSE 54–71; RESP 16–18; TEMP 36.3–36.4; O2SAT 96–100; BMI 28.7
[2025-02-27] MEDS: sodium chloride 0.9% 1,000 ML 30 ML IV (08:50)
[2025-02-27] MEDS: acetaminophen 1,000 MG/100 ML PIGGYBACK 400 MG IV (08:51)
[2025-02-27] MEDS: ketorolac 30 mg/mL INJ IVP (08:51)
[2025-02-27] MEDS: scopolamine 1 mg PATCH 1 PATCH TRANSDERMA (08:51)
--- NOTE | 2025-02-27 09:08 | PC.NURSE ---
PATIENT EXPRESSED THAT SHE HAS ACID REFLUX W CONCERN FOR ASPIRATION. MADE ANESTHESIA AWARE AND RECEIVED ORDER FOR PREOP PEPCID. PATIENT ALSO MADE NURSE AND ANESTHESIA AWARE OF NAUSEA VOMITING POST OP.
--- NOTE | 2025-02-27 09:09 | ANES.PREANE2 ---
Pre-Anesthetic Assessment Height/Weight: Height 5 ft 3 in Weight 162 lb O2 Del Method Room Air 02/27/25 08:32 Preop Diagnosis: Foreign body in hand Operation Date: 02/27/25 12:20 Proposed Procedures p Debridement Upper Extremity And Irrigation hand(Right) - Leonid Park DO s Foreign Body removal Upper Extremity hand(Right) - Leonid Park DO Was Beta Franki taken within 24 hours: N/A Last intake: Intake Last Liquid Date 02/26/25 Last Liquid Time 21:30 Last Solid Date 02/26/25 Last Solid Time 20:30 Social No alcohol and No tobacco Exam alert, oriented x 3, clear to auscultation bilaterally and regular rate & rhythm Airway Submandibular: within normal limits Cervical ROM: within normal limits Mallampati: Class I Dentition: full Anesthetic Plan ASA status: 2 Anesthesia: MAC Other: No prior issues with anesthesia NPO since yesterday evening History of GERD on Pepcid Denies any cardiac or pulmonary issues METs greater than 4 Plan for MAC anesthesia with local via surgeon. Patient states that lidocaine does not work well on her. Will discuss this with surgeon Medications/Allergies Home Medications ?Medication ?Instructions ?Recorded ?Confirmed ?Last Taken ?Type metronidazole 500 mg tablet 500 mg PO BID 7 days #14 tabs 02/24/25 02/27/25 02/27/25 08:25 Rx cephalexin 500 mg capsule 500 mg PO TID 02/25/25 02/27/25 02/27/25 08:25 History ciprofloxacin 500 mg/5 mL oral 250 mg PO BID 02/25/25 02/27/25 02/27/25 08:25 History suspension Allergies Allergy/AdvReac Type Severity Reaction Status Date / Time adhesive Allergy Unknown Verified 02/27/25 08:25 Latex, Natural Rubber Allergy Unknown Verified 02/27/25 08:25 Penicillins Allergy ALGY-Hives Verified 02/27/25 08:25 Current Medications Generic Name Dose Route Start Last Admin Trade Name Freq PRN Reason Stop Dose Admin Sodium Chloride 1,000 mls @ 30 mls/hr 02/27/25 08:45 02/27/25 08:50 Sodium Chloride 0.9% IV 30 mls/hr .Q24H IVAN Administration PFSH Anesthesia Social History Smoking and tobacco/nicotine status: never used tobacco/nicotine
[2025-02-27] MEDS: famotidine 20 mg/2 mL INJ IVP (09:12)
--- NOTE | 2025-02-27 09:38 | W.PM.OPSUD ---
Surgery/Procedure H&P Update DATE OF PROCEDURE: February 27, 2025 DATE H&P PERFORMED: 02/25/25 H&P UPDATE INFORMATION: I have reviewed H&P completed within last 30 days, I have examined patient prior to procedure and No changes to prior documentation PREOP DIAGNOSIS: Foreign body in hand PRIMARY INDICATION FOR PROCEDURE: Right hand foreign body PLANNED PROCEDURE: Operation Date: 02/27/25 12:20 Proposed Procedures p Debridement Upper Extremity And Irrigation hand(Right) - DO karli Hardin Foreign Body removal Upper Extremity hand(Right) - Leonid Park DO
[2025-02-27] MEDS: ceFAZolin 2,000 MG in sodium chloride 0.9% (plus) 50 ML 100 MG IV (09:53)
--- NOTE | 2025-02-27 10:08 | SUR.OPER ---
0955 dr. bravo injected 0.5meq sodium bicarbonate and 9ml 1% lidocaine right hand
--- NOTE | 2025-02-27 10:41 | P.BOP_ITS ---
Date of Procedure: 02/27/2025 Surgeon: Leonid Park DO Professor Of Political Science(s): None Procedure(s) performed: Right hand irrigation and debridement (2 cm x 1 cm x 0.5 cm) Right hand foreign body removal (2 mm catfish cuauhtemoc) Findings of the procedure(s): Patient tolerated procedure well without issues or complications taken recovery stable condition Estimated blood loss: 2 mL Specimen(s) removed: Right hand foreign body removed as well as ellipticized skin track involved in catfish cuauhtemoc, this was not sent for specimen Post-operative diagnosis: Right hand retained foreign body catfish cuauhtemoc
--- NOTE | 2025-02-27 10:43 | PM.OP ---
Operative Report Date of procedure: February 27, 2025 Pre-op diagnosis: Foreign body right hand Post-op diagnosis: Right hand retained foreign body catfish cuauhtemoc Post-op findings: see op note Procedure done: Right hand irrigation and debridement (2 cm x 1 cm x 0.5 cm) Right hand foreign body removal (2 mm catfish cuauhtemoc) Specimens removed/disposition: Right hand foreign body removed as well as ellipticized skin track involved in catfish cuauhtemoc, this was not sent for specimen Surgeon: Leonid Park DO Anesthesia: MAC and Local Estimated blood loss: 2mL 12 minutes IV fluids: 600 mL Complications: None Condition: stable Disposition: same day Brief History: Patient is a pleasant 29-year-old female sustained being stuck by a catfish cuauhtemoc several days ago this was removed in the emergency department she unfortunately a few days later after being on the antibiotics did feel as though she is getting increased pain and swelling in the area she subsequently was x-rayed and found to have small remanent catfish cuauhtemoc left within her right hand. As a result she was referred to outpatient orthopedic evaluation on her evaluation no true signs of infection however patient still had remanent catfish bar we talked about her treatment options Fars nonoperative as operative mention through shared decision making patient elects proceed with surgical invention for right hand foreign body removal. Patient once again understands the ins and outs procedure the risk benefits complication alternatives of surgery and through shared decision making patient like to proceed with surgical invention. All questions answered at this time. Procedure: Patient seen eval in the preoperative holding area. Consent was reviewed and signed with patient. Correct extremities and subsequently marked. Patient was then seen evaluated by anesthesia was cleared for surgery was taken back to the operative suite. Patient was transported on [facility] into the operative suite. She was kept on [facility] armboard applied to the right upper extremity. At this point time patient was well-padded and appropriate secured to the bed. Underwent anesthesia per the anesthesia apartment. Was properly anesthetized patient underwent anesthesia per the anesthesia department once appropriate anesthetized the right upper extremity was then prepped and draped standard orthopedic fashion. Final timeout performed. Patient received appropriate preoperative antibiotics. Esmarch tourniquet was used exsanguinate the right upper extremity tourniquet was insufflated to 250 mmHg. At this point time identified in the first webspace dorsal and radial where the previous catfish cuauhtemoc laceration was this was then subsequently a 2 cm incision was then subsequently excised this entire tract out completely this was done with sharp scalpel incision and then this scar tissue and tract was then subsequently focused just in the subcutaneous region I then subsequently utilized dissection scissors spread and immediately encountered the 2 mm catfish cuauhtemoc this was confirmed of being removed on fluoroscopic imaging and then at this point in time of note there was no evidence of infection I removed all evidence of any scar tissue or communication to his catfish cuauhtemoc this was just skin and subcutaneous tissue this did not extend deep near any neurovascular structures or muscle or tendinous anatomy. At this point in time this was all excised with sharp scalpel incision and dissection scissors. This was then subsequently removed to its entirety confirm once again being removed under fluoroscopic imaging I then thoroughly irrigated the wound bed the wound ended up being 2 cm x 1 cm x 0.5 cm this is debrided of all nonviable skin and subcutaneous fat and scar at the previous puncture site. Tourniquet was deflated hemostasis was satisfactory thoroughly irrigation performed. Subsequently maintained exact hemostasis with bipolar electrocautery and then this was closed in standard fashion with interrupted nylon suture. This was then covered with Xeroform 4 x 4's Kerlix bulky soft dressing and Quinton wrap. Patient was awakened from anesthesia and taken to recovery in stable condition. Disposition: Patient taken recovery in stable condition recovering well received appropriate discharge duction pain medication postoperatively as well as will complete antibiotics and previous prescriptions from emergency department will follow-up in 2 weeks. Patient understands agrees to current plan. Questions answered.
--- NOTE | 2025-02-27 11:26 | ANE.PACU2 ---
Inpatient post-anesthesia follow up: Airway intact: Yes Vital signs: Temperature 97.3 F Pulse Rate 54 Respiratory Rate 16 Blood Pressure 101/65 Pulse Oximetry 100 Oxygen Delivery Me thod Room Air Oxygen Flow Rate 8 Fraction of Inspir ed Oxygen Hydration adequate: Yes Nausea and vomiting: No Pain level: 1 Mental status: Baseline
--- NOTE | 2025-02-27 15:16 | XR_ITS ---
WS: [id number] Exam: XR hand RT min 3V* [id number] Date/Time of Exam: 02/27/2025 3:16 PM Reason For Exam: OR [employer] AP C-arm image of the RIGHT hand is submitted. The previously suspected small soft tissue foreign body between the first and second metacarpals is not identified and apparently has been surgically removed..
== END 2025-02-27 11:25 | disposition home or self-care (01) ==
PROVIDERS: Visit Provider Student in an Organized Health Care Education/Training Program
PROC: (CPT 10121; principal; 2025-02-27 12:10)
PROC: (CPT 10121; 2025-02-27 12:10)
DX: S60.551A Superficial foreign body of right hand, initial encounter (principal); W56.52XA Struck by other fish, initial encounter; K21.9 Gastro-esophageal reflux disease without esophagitis
CPT/HCPCS: 10121; 73130; 76000; J0131; J0690; J1885; J3490; J7030; J9999

== ENCOUNTER 2025-05-22 11:44 | Emergency (ER) | payer SELFPAY ==
--- NOTE | 2025-05-22 11:48 | XR_ITS ---
WS: [id number] XR forearm RT 2V [id number] REASON FOR EXAM: injury FINDINGS: No fracture or periosteal reaction. No soft tissue radiopaque foreign body. Wrist and elbow appear normal. XR/XR forearm RT 2V [id number] IMPRESSION: No significant abnormality.
--- OUTSIDE RECORDS SUMMARY | 2025-05-22 11:51 | XMS_ITS | Clinical Summary ---
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
[2025-05-22 12:00] VITALS: BP 105/63; PULSE 76; RESP 17; TEMP 36.7; O2SAT 100; BMI 26.6
--- NOTE | 2025-05-22 13:31 | ED_ITS ---
HPI - Extremity Problem General: Chief complaint: Extremity Injury, Upper Stated complaint: rt forearm pain Time Seen by Provider: 05/22/25 11:49 Source: patient Mode of arrival: ambulatory Limitations: no limitations History of Present Illness: Patient is a nice 29-year-old female presents to ED today with a complaint of pain around her right elbow and down into her forearm that has been present over the past 3 weeks or so. No known injury or trauma. She feels like area will intermittently swell. Pain seems to be worse with range of motion. 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 She occasionally will get some numbness and tingling. She has tried tendinitis braces, ice, heat, anti-inflammatories, rest, all without much improvement. MD Complaint: joint pain Onset (ago): week(s) Pain Consistency: constant Location: right and upper extremity Radiation: none Relieving factors: nothing Exacerbating factors: range of motion Associated symptoms: Reports no associated symptoms; Deny chest pain or fever(s) Related Data Home Medications ?Medication ?Instructions ?Recorded ?Confirmed cephalexin 500 mg capsule 500 mg PO TID 02/25/2503/17 ciprofloxacin 500 mg/5 mL oral 250 mg PO BID 02/25/25 03/17/25 suspension Previous Rx's ?Medication ?Instructions ?Recorded prednisone 10 mg tablet 10 mg PO DAILY 6 days #20 ta bs 05/22/25 Allergies Allergy/AdvReac Type Severity Reaction Status Date / Time adhesive Allergy Unknown Verified 03/17/25 09:05 Latex, Natural Rubber Allergy Unknown Verified 03/17/25 09:05 Penicillins Allergy ALGY-Hives Verified 03/17/25 09:05 Review of Systems Const: Denies: fever(s) Card: Denies: chest pain Resp: Denies: dyspnea Musc: Reports: joint pain (R elbow ); Denies: neck pain, back pain, joint swelling, joint redness or joint warmth Neuro: Denies: numbness in extremities, weakness in extremities or sensory changes PFSH ED PFSH: Social History Smoking and tobacco/nicotine status: never used tobacco/nicotine Physical Exam Const: COMMON NORMALS: no acute distress, average body habitus, no limitations, healthy appearing, alert and well nourished Extremity: COMMON NORMALS: normal to inspection, full ROM, capillary refill normal, no joint enlargement, no clubbing, cyanosis or edema, no calf tenderness and no pedal edema GENERAL: Yes normal exam except as noted RIGHT UPPER EXTREMITY: Yes elbow joint (TTP medial and lateral epicondyles; no edema) Right elbow: Yes neurovascular exam (normal ) Neuro: COMMON NORMALS: moves all extremities, no focal motor deficits and no sensory deficits noted SENSORIUM/ORIENTATION: Yes alert Course Vital Signs: Vital signs: Vital Signs Temperature 98.0 F 05/22/25 12:00 Pulse Rate 73 05/22/25 13:55 Respiratory Rate 17 05/22/25 12:00 Blood Pressure 102/62 05/22/25 13:55 Pulse Oximetry 97 05/22/25 13:55 Oxygen Delivery Me thod Room Air 05/22/25 12:00 MDM - Extremity (Nontraumatic) Medical Decision Making DDx includes elbow tendinitis, bursitis, nerve entrapment. Symptoms have been present for 3 weeks and she has failed conservative therapy at home. Will have her follow-up with orthopedics. Will place her on a prednisone taper. Medical Records I reviewed the patient's medical records. Lab Data Radiology Impressions Forearm X-Ray 05/22/25 11:48 IMPRESSION: No significant abnormality. All radiology interpretation(s) finalized by discharge Discharge Plan Discharge Patient Disposition: Home Clinical Impression: Right elbow tendinitis Condition: Stable Prescriptions: New prednisone 10 mg tablet 10 mg PO DAILY 6 Days Qty: 20 0RF Rx Instructions: Take 5 tabs on day 1-2, 4 tabs on day 3, 3 tabs on day 4, 2 tabs on day 5, and 1 tab on day 6 No Action ciprofloxacin 500 mg/5 mL suspension,microcapsule recon 250 mg PO BID cephalexin 500 mg capsule 500 mg PO TID Discharge Orders: Discharge ED (Routine); Ordered 05/22/25 Ordered By: Cecilia Wellington Patient Instructions: Tendinitis (ED), Patient Portal & Johnathan Instructions Activity Restrictions/Additional Instructions: Your x-ray today here was unremarkable. We discussed continuing conservative therapies including bracing/taping, ice/heat, anti-inflammatories, and I will place you on a steroid taper. I will place a case management referral for you to be seen by orthopedic team for further evaluation/treatment options. Print Language: Irish Coding Level of Care Code ED Chiropractor Sole Practitioner for Zhen Gan
[2025-05-22 13:55] VITALS: BP 102/62; PULSE 73; O2SAT 97
--- NOTE | 2025-05-25 07:25 | DCPLANNER ---
messaged ortho for er f/u
== END 2025-05-22 13:35 | disposition home or self-care (01) ==
PROVIDERS: Emergency Provider Physician Assistant
DX: M77.8 Other enthesopathies, not elsewhere classified (principal)
CPT/HCPCS: 73090; 99283

== ENCOUNTER 2025-06-04 19:26 | Emergency (ER) | payer SELFPAY ==
[2025-06-04 19:29] VITALS: BP 116/71; PULSE 66; RESP 16; TEMP 36.8; O2SAT 100; BMI 26.7
--- OUTSIDE RECORDS SUMMARY | 2025-06-04 19:32 | XMS_ITS | Clinical Summary ---
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
--- NOTE | 2025-06-04 20:56 | W.ED.URI ---
HPI - URI/Sore Throat General: Chief Complaint: Upper Respiratory Infection Stated Complaint: post concussion, clear burning fluid from nose Time Seen by Provider: 06/04/25 20:02 Source: patient Mode of arrival: ambulatory Limitations: no limitations History of Present Illness: Patient is a 29-year-old female who presents the emergency department complaining of episode of rhinorrhea. She states that she hit her head a couple of weeks ago, states that she is concerned that this is now CSF fluid that is leaking. This only occurred once earlier this morning, states that her friends told her to come in to get checked out. She has no neurological deficits to report otherwise. States that the discharge was foul in odor and yellow appearing, denies history of allergies but she states that throughout the day she has felt kind of fatigued. Vital stable at this time. MD elicited complaint: rhinorrhea Associated symptoms: Deny abdominal pain, chills, chest pain, diarrhea, ear or mastoid pain, fever(s), headache(s), nausea or vomiting Related Data Home Medications ?Medication ?Instructions ?Recorded ?Confirmed cephalexin 500 mg capsule 500 mg PO TID 02/25/25 03/17/25 ciprofloxacin 500 mg/5 mL oral 250 mg PO BID 02/25/25 03/17/25 suspension Allergies Allergy/AdvReac Type Severity Reaction Status Date / Time adhesive Allergy Unknown Verified 03/17/25 09:05 Latex, Natural Rubber Allergy Unknown Verified 03/17/25 09:05 Penicillins Allergy ALGY-Hives Verified 03/17/25 09:05 Review of Systems General: Reports: 10 or more systems reviewed and unremarkable except in HPI and below Const: Reports: fatigue; Denies: fever(s) or chills Eyes: Denies: change in vision ENMT: Reports: nasal discharge; Denies: throat pain or ear or mastoid pain Card: Denies: chest pain, palpitations, swelling of feet/ankles or lightheadedness Resp: Denies: dyspnea, productive cough or wheezing GI: Denies: abdominal pain, nausea, vomiting, diarrhea or constipation : Denies: flank pain, difficulty voiding, dysuria or urinary frequency Musc: Denies: neck pain, back pain or joint pain Skin/Breast: Denies: rash Neuro: Denies: headache(s), numbness in extremities, weakness in extremities, sensory changes, dizziness, confusion, Slurred speech present, seizure-like activity or involuntary movements PFSH ED PFSH: Social History Smoking and tobacco/nicotine status: never used tobacco/nicotine Physical Exam Const: COMMON NORMALS: no acute distress, patient oriented x3 and no limitations GENERAL APPEARANCE: cooperative, comfortable and well developed ORIENTATION/CONSCIOUSNESS: Yes awake, Yes oriented to person, Yes oriented to place and Yes oriented to time HENMT: COMMON NORMALS: normocephalic, atraumatic, hearing grossly normal bilaterally, Normal external nose present and Normal nasal mucous membranes and turbinates present HEAD & SCALP: normocephalic and atraumatic NOSE: Normal external nose present and Normal nasal mucous membranes and turbinates present Eye: COMMON NORMALS: Equal, round and reactive pupils present, EOMs intact bilaterally and conjunctivae normal CONJUNCTIVA: Yes conjunctivae normal PUPIL: Yes Equal, round and reactive pupils present Neck/C-Spine: COMMON NORMALS: full ROM, supple and no JVD Resp: COMMON NORMALS: normal respiratory effort, No retractions, No use of accessory muscles and clear to auscultation bilaterally AUSCULTATION: clear to auscultation bilaterally Cardio: COMMON NORMALS: no JVD, regular rate, regular rhythm, No clicks present (Cardio), No murmurs present (Cardio) and No rub (Cardio) RATE: regular rate RHYTHM: regular rhythm Extremity: COMMON NORMALS: normal to inspection, full ROM and capillary refill normal Neuro: COMMON NORMALS: patient oriented x3, CN's II-XII intact bilaterally, moves all extremities, no focal motor deficits and no sensory deficits noted SENSORIUM/ORIENTATION: Yes oriented to person, Yes oriented to place and Yes oriented to time Psych: COMMON NORMALS: mental status grossly normal and Normal thought process present THOUGHT PROCESS: Normal thought process present Skin: COMMON NORMALS: no rashes or lesions noted GENERAL SKIN EXAM: no rashes or lesions noted Course Vital Signs: Vital signs: Vital Signs Temperature 98.2 F 06/04/25 19:29 Pulse Rate 66 06/04/25 19:29 Respiratory Rate 16 06/04/25 19:29 Blood Pressure 116/71 06/04/25 19:29 Pulse Oximetry 100 06/04/25 19:29 Oxygen Delivery Me thod Room Air 06/04/25 19:29 MDM - URI/Sore Throat Medical Decision Making Patient presented for an episode of rhinorrhea today, she expressed concern this was CSF leak after a head injury that occurred a couple of weeks ago. The injury she reports was banging her head on a cabinet, this is low impact and have no concern that this is any CSF leak this is likely rhinorrhea from allergic rhinitis and encouraged to take [id number] medications for this. General return precautions given told follow-up primary care. No radiology studies performed this visit Discharge Plan Discharge Patient Disposition: Home Clinical Impression: Allergic rhinitis Condition: Stable Prescriptions: No Action ciprofloxacin 500 mg/5 mL suspension,microcapsule recon 250 mg PO BID cephalexin 500 mg capsule 500 mg PO TID Discharge Orders: Discharge ED (Routine); Ordered 06/04/25 Ordered By: Narinder Lopes Patient Instructions: Patient Portal & Johnathan Instructions Activity Restrictions/Additional Instructions: Take [id number] Zyrtec or Claritin for any allergy relief. Return with any neurological deficits, trouble walking, or any other major concerns that you have. Print Language: Estonian Coding Level of Care Code ED Resume Specialist for Zhen Gan
== END 2025-06-04 20:52 | disposition home or self-care (01) ==
PROVIDERS: Emergency Provider Physician Assistant
DX: J30.9 Allergic rhinitis, unspecified (principal)
CPT/HCPCS: 99282

== ENCOUNTER → 2025-06-05 09:39 | Outpatient (BNVA) | payer SELFPAY | PROVIDERS: Visit Provider Nurse Practitioner | DX: M77.11 Lateral epicondylitis, right elbow (principal); M77.8 Other enthesopathies, not elsewhere classified | CPT/HCPCS: 73080 ==

== ENCOUNTER 2025-07-06 14:58 | Outpatient (CLI) | payer SELFPAY ==
--- NOTE | 2025-07-06 16:00 | MR_ITS ---
WS: [id number] MRI RIGHT ELBOW WITHOUT CONTRAST. COMPARISON: Radiograph 06/05/2025 Multiplanar, multisequence imaging is performed with contrast. No acute marrow edema. Normal alignment of the elbow joint. No joint effusion. No soft tissue mass. The triceps tendon is normal. Increased signal on the T2 sequences in the proximal ulnar collateral ligament consistent with a high-grade tear. The common flexor tendon fibers are intact. There is no significant amount of fluid adjacent to the tear. The radial collateral ligament and extensor tendon are normal. Normal appearance of the biceps tendon, brachialis and radio brachialis tendons. There is no tear identified. Muscles are normal. No signal abnormality. MR/MR elbow RT wo con* [id number] IMPRESSION: 1. Age-indeterminate high-grade tear involving the proximal ulnar collateral l igament. There is no associated fluid. 2. No joint effusion. 3. No marrow edema or fracture.
== END 2025-07-06 14:59 | disposition home or self-care (01) ==
LOC: RAD 14:59
PROVIDERS: Visit Provider Nurse Practitioner
DX: M77.8 Other enthesopathies, not elsewhere classified (principal); M25.521 Pain in right elbow; M25.421 Effusion, right elbow; S53.441A Ulnar collateral ligament sprain of right elbow, initial encounter; X58.XXXA Exposure to other specified factors, initial encounter
CPT/HCPCS: 73221

== ENCOUNTER 2025-07-17 12:53 | Outpatient (CLI) | payer SELFPAY | END 2025-07-17 12:54 | disposition home or self-care (01) | LOC: SPT 12:54 | PROVIDERS: Visit Provider Nurse Practitioner | DX: Z46.89 Encounter for fitting and adjustment of other specified devices (principal); S53.31XD Traumatic rupture of right ulnar collateral ligament, subsequent encounter; X58.XXXD Exposure to other specified factors, subsequent encounter | CPT/HCPCS: L3761 ==